=== PATIENT | male | born 1940 | race Caucasian/White ===

== ENCOUNTER 2018-01-25 10:02 | Inpatient (IN) | payer OTHER ==
[~2018-01-25] VITALS: Ht 180.3 cm; Wt 95.3 kg
[2018-01-25 10:15] VITALS: BP_SYST 144
[2018-01-25] MEDS ORDERED: ASPIRIN 81 MG TAB.CHEW PO ONE (10:30)
[2018-01-25 10:49] LABS: BASOPHILS # (AUTO) 0.1 K/uL (0.0-0.2); BASOPHILS % (AUTO) 0.6 % (0.0-2.0); EOSINOPHILS # (AUTO) 0.1 K/uL (0.0-0.4); HEMATOCRIT 39.8 % (36-54); HEMOGLOBIN 13.1 g/dL (14.0-18.0); LYMPHOCYTES # (AUTO) 0.5 K/uL (1.0-5.5); LYMPHOCYTES % (AUTO) 5.6 % (20.5-51.5); MEAN CORPUSCULAR HEMOGLOBIN 30 pg (27-31); MEAN CORPUSCULAR HGB CONC 33 % (32-36); MEAN CORPUSCULAR VOLUME 90 fL (79.0-98.0); MONOCYTES # (AUTO) 0.6 K/uL (0.0-1.0); MONOCYTES % (AUTO) 6.7 % (1.7-9.3); NEUTROPHILS # (AUTO) 7.4 K/uL (1.8-7.7); NEUTROPHILS % (AUTO) 86.1 % (40.0-70.0); PLATELET COUNT (AUTO) 148 K/uL (130-430); RED BLOOD CELL COUNT(AUTO) 4.41 MIL/uL (4.2-6.2); RED CELL DISTRIBUTION WIDTH 13.3 % (9.0-15.0); WHITE BLOOD COUNT (AUTO) 8.7 K/uL (4.8-10.8)
[2018-01-25 10:58] LABS: ANION GAP 9 (5-15); CALCIUM 8.7 mg/dL (8.4-11.0); CHLORIDE 109 mmol/L (98-107); CREATININE 1.38 mg/dL (0.55-1.30); GLUCOSE 118 mg/dL (70-99); POTASSIUM 3.9 mmol/L (3.5-5.1); SODIUM SERUM 142 mmol/L (136-145); UREA NITROGEN, BLOOD 22 mg/dL (8-21)
[2018-01-25 11:03] LABS: ALANINE AMINOTRANSFERASE 26 U/L (12-78); ALBUMIN 3.1 g/dL (3.4-4.8); ASPARTATE AMINOTRANSFERASE 23 U/L (10-37); INR 1.1 (0.80-1.20); PROTHROMBIN TIME 10.8 SECS (9.5-12.5); TOTAL BILIRUBIN 3.3 mg/dL (0.0-1.0)
[2018-01-25 13:19] LABS: BILIRUBIN,URINE NEGATIVE (NEGATIVE); BLOOD, URINE 2+ (NEGATIVE); COLOR,URINE ORANGE (YELLOW); GLUCOSE,URINE NEGATIVE (NEGATIVE); KETONES,URINE NEGATIVE (NEGATIVE); LEUKOCYTE ESTERASE ,URINE NEGATIVE (NEGATIVE); NITRITE, URINE NEGATIVE (NEGATIVE); PH,URINE 5.5 (5.0-8.0); PROTEIN URINE 1+ (NEGATIVE)
[2018-01-25 13:23] LABS: CLARITY/URINE HAZY (CLEAR)
[2018-01-25 13:27] LABS: BACTERIA,URINE RARE /HPF (None Seen); MUCUS,URINE 1+ /LPF (None Seen); WBC,URINE 0-3 /HPF (0-3)
[2018-01-25] MEDS ORDERED: IOHEXOL 100 ML IV ONE (13:28)
[2018-01-25] MEDS ORDERED: NACL 0.9% 1,000 ML IV ONE (13:45)
[2018-01-25] MEDS ORDERED: ENOXAPARIN SODIUM 100 MG/ML SYRINGE SUBCUT ONE (14:15)
[2018-01-25] MEDS ORDERED: ONDANSETRON HCL 4 MG/2 ML VIAL IVP PRN (14:45)
[2018-01-25] MEDS ORDERED: ACETAMINOPHEN 325 MG TABLET PO PRN (14:45)
[2018-01-25] MEDS ORDERED: IPRATROPIUM/ALBUTEROL SULFATE 3 ML AMPUL.NEB INH PRN (14:45)
[2018-01-25] MEDS ORDERED: *LOVENOX 1MG/KG Q12H/PHARMACY XX ONE (14:45)
[2018-01-25 16:38] VITALS: BP_SYST 123
[2018-01-25 19:00] VITALS: BP_SYST 140
[2018-01-25 20:00] VITALS: BP_SYST 140
[2018-01-25] MEDS: ENOXAPARIN SODIUM 100 MG/ML SYRINGE SUBCUT SCH (20:34)
[2018-01-26 00:44] VITALS: BP_SYST 97
[2018-01-26 06:39] LABS: BASOPHILS % (AUTO) 0.6 % (0.0-2.0); EOSINOPHILS # (AUTO) 0.1 K/uL (0.0-0.4); EOSINOPHILS % (AUTO) 2.1 % (0.0-4.0); HEMATOCRIT 34.8 % (36-54); HEMOGLOBIN 11.9 g/dL (14.0-18.0); LYMPHOCYTES # (AUTO) 0.8 K/uL (1.0-5.5); LYMPHOCYTES % (AUTO) 11.1 % (20.5-51.5); MEAN CORPUSCULAR HEMOGLOBIN 31 pg (27-31); MEAN CORPUSCULAR HGB CONC 34 % (32-36); MEAN CORPUSCULAR VOLUME 89 fL (79.0-98.0); MONOCYTES # (AUTO) 0.4 K/uL (0.0-1.0); MONOCYTES % (AUTO) 5.9 % (1.7-9.3); NEUTROPHILS # (AUTO) 5.5 K/uL (1.8-7.7); NEUTROPHILS % (AUTO) 80.3 % (40.0-70.0); PLATELET COUNT (AUTO) 149 K/uL (130-430); RED BLOOD CELL COUNT(AUTO) 3.89 MIL/uL (4.2-6.2); RED CELL DISTRIBUTION WIDTH 13.4 % (9.0-15.0); WHITE BLOOD COUNT (AUTO) 6.9 K/uL (4.8-10.8)
[2018-01-26 07:07] LABS: ANION GAP 7 (5-15); CALCIUM 8.2 mg/dL (8.4-11.0); CHLORIDE 107 mmol/L (98-107); CREATININE 1.24 mg/dL (0.55-1.30); GLUCOSE 109 mg/dL (70-99); SODIUM SERUM 138 mmol/L (136-145); THYROID STIMULATING HORMONE 2.13 uIu/mL (0.34-4.82); UREA NITROGEN, BLOOD 18 mg/dL (8-21)
[2018-01-26 09:09] VITALS: BP_SYST 127
[2018-01-26] MEDS: ENOXAPARIN SODIUM 100 MG/ML SYRINGE SUBCUT SCH (09:16)
[2018-01-26] MEDS ORDERED: cefTRIAXone 1 GM in D5W 50 ML IV SCH (11:00)
[2018-01-26 12:00] VITALS: BP_SYST 125
[2018-01-26 13:33] VITALS: BP_SYST 125
[2018-01-26] MEDS ORDERED: AMOX-426 PO (14:40)
[2018-01-26] MEDS ORDERED: APIX5TAB PO (14:41)
[2018-01-27 08:13] LABS: % FREE PSA 14.4 % (.); CEA 1.8 ng/mL (0.0-4.7); FREE PSA 0.36 ng/mL; PROSTATE SPECIFIC AG TOTAL 2.5 ng/mL (0.0-4.0)
== END 2018-01-26 15:05 | disposition home or self-care (01) | DRG 175 ==
LOC: SED 10:02 → STU 14:42
PROVIDERS: ADMIT Internal Medicine; ATTEND Internal Medicine
DX: I26.99 Other pulmonary embolism without acute cor pulmonale (principal); J18.9 Pneumonia, unspecified organism; J90 Pleural effusion, not elsewhere classified; I82.432 Acute embolism and thrombosis of left popliteal vein; N28.9 Disorder of kidney and ureter, unspecified; M54.9 Dorsalgia, unspecified; Z90.49 Acquired absence of other specified parts of digestive tract
CPT/HCPCS: 36415; 71045; 71275; 76700-TC; 80048; 80053; 81000-TC; 82378; 82550-TC; 83880; 83970; 84153; 84443-TC; 84484; 85025; 85379; 85610-TC; 85730-TC; 93005; 93306; 93970; 96360; 96372; 99285; J0696; J1650; J7060; Q9967

== ENCOUNTER 2018-10-16 10:40 | Emergency (ER) | payer OTHER ==
[~2018-10-16] VITALS: Ht 177.8 cm; Wt 95.3 kg
[2018-10-16 10:40] VITALS: BP_SYST 125
[~2018-10-16 10:40] MED LIST: AMOX-426 PO; APIX5TAB PO
[2018-10-16] MEDS ORDERED: LACTULOSE 20 GM/30 ML UDC PO ONE (11:45)
[2018-10-16] MEDS ORDERED: LACTULOSE 20 GM/30 ML UDC ONE (13:21)
[2018-10-16 13:30] VITALS: BP_SYST 110
== END 2018-10-16 13:30 | disposition home or self-care (01) ==
LOC: SED 10:40
DX: K56.41 Fecal impaction (principal); Z79.899 Other long term (current) drug therapy
CPT/HCPCS: 99283

== ENCOUNTER 2019-02-07 09:50 | Emergency (ER) | payer OTHER | END 2019-02-07 10:11 | disposition left against medical advice (07) | LOC: SED 09:50 | DX: K59.00 Constipation, unspecified (principal); Z53.21 Procedure and treatment not carried out due to patient leaving prior to being seen by health care provider ==

== ENCOUNTER 2019-12-08 09:42 | Emergency (ER) | payer OTHER ==
[~2019-12-08] VITALS: Ht 180.3 cm; Wt 95.3 kg
[2019-12-08 09:42] VITALS: BP_SYST 151
--- NOTE | 2019-12-08 09:42 | NUR ---
BROUGHT BACK TO BED #5 AND TRIAGED. REPORT GIVEN TO SHIRLEY
--- NOTE | 2019-12-08 09:50 | NUR ---
Patient presented to ER C/O Constipation. Patient ambulatory to ER, A&Ox4, pain 03/30, denies N/V/D. Patient states he has Constipation x1.5 DAYS. Patient states he took PO OTC laxative with no BM.
--- NOTE | 2019-12-08 09:55 | NUR ---
ER Dr. Mckeon at bedside examining patient.
[2019-12-08 11:15] VITALS: BP_SYST 151
--- NOTE | 2019-12-08 11:15 | NUR ---
Patient given written and verbal discharge instructions and verbalizes understanding. ER MD discussed with patient the results and treatment provided. Patient in stable condition. ID arm band removed. Rx of Golytely & Glycerin suppository given. Patient educated on pain management and to follow up with PMD. Pain Scale 7/10 per pt: tolerable will tx at home with prescription medication. Opportunity for questions provided and answered. Medication side effect fact sheet provided.
== END 2019-12-08 11:15 | disposition home or self-care (01) ==
LOC: SED 09:42
DX: K59.00 Constipation, unspecified (principal); Z79.899 Other long term (current) drug therapy
CPT/HCPCS: 74018; 99283

== ENCOUNTER 2020-05-28 11:30 | Emergency (ER) | payer OTHER ==
[~2020-05-28] VITALS: Ht 180.3 cm; Wt 99.8 kg
[2020-05-28 11:30] VITALS: BP_SYST 130
--- NOTE | 2020-05-28 11:30 | NUR ---
BROUGHT BACK TO BED #5 AND TRIAGED. REPORT GIVEN TO STEVE
--- NOTE | 2020-05-28 11:40 | NUR ---
Patient came to the ER with complaint of skin tear on hand after a fall. Per patient he was wheeling a cart for his and he fell. There is ecchymosis on the left knee, left arm, nose, and forehead. Patient decline any change in LOC and is AOX4. is with the patient bedside. Patient not presenting any signs of acute distress.
--- NOTE | 2020-05-28 12:10 | NUR ---
ER Dr. Nguyen at bedside examining patient.
[2020-05-28] MEDS ORDERED: DIPH-TET-PERTUS Vaccine 0.5 ML VIAL (ADACEL) I.M. ONE (12:30)
[2020-05-28] MEDS ORDERED: BACITRACIN 1 GM OINT TP ONE (12:30)
[2020-05-28 12:41] VITALS: BP_SYST 130
--- NOTE | 2020-05-28 12:41 | NUR ---
Patient given written and verbal discharge instructions and verbalizes understanding. ER MD discussed with patient the results and treatment provided. Patient in stable condition. ID arm band removed. IV catheter removed intact and dressing applied, no active bleeding. Patient educated on pain management and to follow up with PMD. Pain Scale 0. Opportunity for questions provided and answered. Medication side effect fact sheet provided.
== END 2020-05-28 12:41 | disposition home or self-care (01) ==
LOC: SED 11:30
DX: S61.412A Laceration without foreign body of left hand, initial encounter (principal); G20 Parkinson's disease; Z79.899 Other long term (current) drug therapy; W18.09XA Striking against other object with subsequent fall, initial encounter; Y93.89 Activity, other specified; Y92.89 Other specified places as the place of occurrence of the external cause; Y99.8 Other external cause status
CPT/HCPCS: 90715; 99283; 99284

== ENCOUNTER 2020-06-14 01:00 | Emergency (ER) | payer OTHER ==
[~2020-06-14] VITALS: Ht 180.3 cm; Wt 99.8 kg
[2020-06-14 01:05] VITALS: BP_SYST 139
[2020-06-14 01:56] LABS: BASOPHILS # (AUTO) 0.1 K/uL (0.0-0.2); BASOPHILS % (AUTO) 0.7 % (0.0-2.0); EOSINOPHILS # (AUTO) 0.1 K/uL (0.0-0.4); EOSINOPHILS % (AUTO) 0.8 % (0.0-4.0); HEMATOCRIT 43.2 % (36-54); HEMOGLOBIN 14.6 g/dL (14.0-18.0); LYMPHOCYTES # (AUTO) 1.3 K/uL (1.0-5.5); LYMPHOCYTES % (AUTO) 13.6 % (20.5-51.5); MEAN CORPUSCULAR HEMOGLOBIN 31 pg (27-31); MEAN CORPUSCULAR HGB CONC 34 % (32-36); MEAN CORPUSCULAR VOLUME 91 fL (79.0-98.0); MONOCYTES # (AUTO) 0.5 K/uL (0.0-1.0); MONOCYTES % (AUTO) 5.7 % (1.7-9.3); NEUTROPHILS # (AUTO) 7.5 K/uL (1.8-7.7); NEUTROPHILS % (AUTO) 79.2 % (40.0-70.0); PLATELET COUNT (AUTO) 181 K/uL (130-430); RED BLOOD CELL COUNT(AUTO) 4.73 MIL/uL (4.2-6.2); RED CELL DISTRIBUTION WIDTH 14.7 % (9.0-15.0); WHITE BLOOD COUNT (AUTO) 9.5 K/uL (4.8-10.8)
[2020-06-14 01:59] LABS: ANION GAP 10 (5-15); CALCIUM 8.5 mg/dL (8.4-11.0); CHLORIDE 104 mmol/L (98-107); CREATININE 1.31 mg/dL (0.55-1.30); GLUCOSE 115 mg/dL (70-99); SODIUM SERUM 138 mmol/L (136-145); UREA NITROGEN, BLOOD 18 mg/dL (8-21)
[2020-06-14 02:04] LABS: ALANINE AMINOTRANSFERASE 30 U/L (12-78); ALBUMIN 4.1 g/dL (3.4-4.8); ASPARTATE AMINOTRANSFERASE 26 U/L (10-37); LIPASE 113 U/L (73-393)
[2020-06-14 03:08] LABS: BILIRUBIN,URINE NEGATIVE (NEGATIVE); BLOOD, URINE 2+ (NEGATIVE); CLARITY/URINE CLEAR (CLEAR); COLOR,URINE YELLOW (YELLOW); GLUCOSE,URINE NEGATIVE (NEGATIVE); KETONES,URINE NEGATIVE (NEGATIVE); LEUKOCYTE ESTERASE ,URINE NEGATIVE (NEGATIVE); NITRITE, URINE NEGATIVE (NEGATIVE); PH,URINE 5.5 (5.0-8.0); PROTEIN URINE NEGATIVE (NEGATIVE)
[2020-06-14 03:09] LABS: UROBILINOGEN,URINE 0.2 (0.2-1.0)
[2020-06-14 03:14] LABS: BACTERIA,URINE RARE /HPF (None Seen); WBC,URINE 0-3 /HPF (0-3)
[2020-06-14 04:12] VITALS: BP_SYST 139
[2020-06-14] MEDS: SODIUM PHOSPHATE,MONO-DIBASIC 133 ML ENEMA RC ONE (04:22)
[2020-06-14] MEDS: NS 500 ML IV ONE ×2 (04:23→04:24)
== END 2020-06-14 04:12 | disposition home or self-care (01) ==
LOC: SED 01:00
DX: K56.41 Fecal impaction (principal); R33.9 Retention of urine, unspecified; G20 Parkinson's disease; Z79.899 Other long term (current) drug therapy
CPT/HCPCS: 36415; 51702; 74176; 76376; 80053; 81000; 83690; 85025; 96360; 99284; J7040